=== PATIENT | female | born 1985 | race Caucasian/White ===

== ENCOUNTER 2017-01-14 13:09 | Inpatient (IN) | payer SELFPAY ==
[~2017-01-14] VITALS: Ht 157.5 cm; Wt 84.4 kg
[~2017-01-14 13:09] MED LIST: AMOXICILLIN500 M2 PO; AMOXICILLIN500 M3 PO; CYCLOBENZAPRINE5 M3 PO; DULCOLAX10 MG PO; IBU800 M1 PO; MACROBID100 M1 PO; MOTRIN800 MG PO; PEN-VK500 MG PO; PERCOCET 325 MG1 TA5 PO; PRENATAL1 TA3 PO; PRILOSEC20 MG PO; VICODIN 500 MG-1 TAB PO
[2017-01-14 13:14] VITALS: BP 132/76
[2017-01-14 14:11] LABS: BASO % 0.2 % (0.0-1.0); EOS # 0.2 10*3/uL (0.0-0.4); EOS % 0.9 % (1.0-4.0); HEMOGLOBIN 13.8 g/dl (12.0-16.0); LYMPH # 1.7 10*3/uL (1.3-4.4); LYMPH % 9.4 % (27.0-41.0); MEAN CELL VOLUME 88.2 fl (81.0-99.0); MEAN CORPUSCULAR HGB 29.7 pg (27.0-31.0); MEAN CORPUSCULAR HGB CONC 33.7 g/dl (33.0-37.0); MEAN PLATELET VOLUME 10.4 fl (9.6-12.3); MONO # 1.4 10*3/uL (0.1-1.0); MONO % 7.8 % (3.0-9.0); NEUT # 14.7 10*3/uL (2.3-7.9); NEUT % 81.1 % (47.0-73.0); PLATELET COUNT AUTOMATED 316 10*3/uL (130-400); RED BLOOD COUNT 4.65 10*6/uL (4.10-5.10); RED CELL DISTRI WIDTH 13.1 % (0-14.5); WHITE BLOOD COUNT 18.1 10*3/uL (4.8-10.8)
[2017-01-14 14:28] LABS: ALBUMIN 3.6 gm/dl (3.1-4.5); ALKALINE PHOSPHATASE 96 U/L (45-117); BUN 7 mg/dl (7-24); CHLORIDE 106 mmol/L (98-107); CREATININE 0.71 mg/dL (0.55-1.02); POTASSIUM 3.4 mmol/L (3.5-5.1); SGOT/AST 19 IU/L (3-35); SGPT/ALT 56 U/L (12-78); SODIUM 140 mmol/L (136-145); TOTAL PROTEIN 7.4 gm/dL (6.4-8.2)
[2017-01-14 15:36] VITALS: BP 120/55
[2017-01-14 16:15] VITALS: BP 131/60
[2017-01-14] MEDS ORDERED: JULEBER 28 DAY1 EACH PO (16:37)
[2017-01-14] MEDS ORDERED: PREDNISONE10 MG PO (16:38)
[2017-01-14] MEDS ORDERED: CELEXA20 MG PO (16:39)
[2017-01-14 20:00] VITALS: BP 106/50
[2017-01-15] VITALS: BP 107/55
[2017-01-15 06:11] LABS: BASO % 0.2 % (0.0-1.0); EOS # 0.3 10*3/uL (0.0-0.4); EOS % 2.1 % (1.0-4.0); LYMPH # 2.6 10*3/uL (1.3-4.4); LYMPH % 18.7 % (27.0-41.0); MEAN CELL VOLUME 90.4 fl (81.0-99.0); MEAN CORPUSCULAR HGB 29.6 pg (27.0-31.0); MEAN CORPUSCULAR HGB CONC 32.8 g/dl (33.0-37.0); MEAN PLATELET VOLUME 10.6 fl (9.6-12.3); MONO # 1.1 10*3/uL (0.1-1.0); MONO % 8.3 % (3.0-9.0); NEUT # 9.6 10*3/uL (2.3-7.9); NEUT % 70.2 % (47.0-73.0); PLATELET COUNT AUTOMATED 268 10*3/uL (130-400); RED BLOOD COUNT 3.85 10*6/uL (4.10-5.10); RED CELL DISTRI WIDTH 13.2 % (0-14.5); WHITE BLOOD COUNT 13.6 10*3/uL (4.8-10.8)
[2017-01-15 06:17] LABS: BUN 7 mg/dl (7-24); CHLORIDE 111 mmol/L (98-107); CHOLESTEROL 115 mg/dL (<200); CREATININE 0.69 mg/dL (0.55-1.02); HDL CHOLESTEROL 48 mg/dl (40-60); LDL CHOLESTEROL 45 mg/dL (9-159); MAGNESIUM 2.2 mg/dL (1.5-2.1); PHOSPHOROUS 2.7 mg/dL (2.5-4.9); POTASSIUM 3.7 mmol/L (3.5-5.1); SODIUM 141 mmol/L (136-145); TRIGLYCERIDES 111 mg/dl (<150); VLDL CHOLESTEROL 22 mg/dL (6-40)
[2017-01-15 06:18] LABS: HEMATOCRIT 34.8 % (37.0-47.0); HEMOGLOBIN 11.4 g/dl (12.0-16.0)
[2017-01-15 06:28] LABS: ACT PARTIAL THROMBO TIME 26.3 SECONDS (20.8-31.5)
[2017-01-15 08:00] VITALS: BP 114/50
[2017-01-15 12:00] VITALS: BP 121/58
[2017-01-15 16:00] VITALS: BP 120/69
[2017-01-15 20:00] VITALS: BP 121/70
[2017-01-16] VITALS: BP 124/69
[2017-01-16 05:49] LABS: BASO % 0.2 % (0.0-1.0); EOS # 0.3 10*3/uL (0.0-0.4); EOS % 3.2 % (1.0-4.0); HEMATOCRIT 34.8 % (37.0-47.0); HEMOGLOBIN 11.5 g/dl (12.0-16.0); LYMPH # 2.7 10*3/uL (1.3-4.4); LYMPH % 25.5 % (27.0-41.0); MEAN CELL VOLUME 90.9 fl (81.0-99.0); MEAN PLATELET VOLUME 10.5 fl (9.6-12.3); MONO # 0.9 10*3/uL (0.1-1.0); MONO % 8.4 % (3.0-9.0); NEUT # 6.5 10*3/uL (2.3-7.9); NEUT % 62.2 % (47.0-73.0); PLATELET COUNT AUTOMATED 278 10*3/uL (130-400); RED BLOOD COUNT 3.83 10*6/uL (4.10-5.10); WHITE BLOOD COUNT 10.5 10*3/uL (4.8-10.8)
[2017-01-16 06:20] LABS: ALBUMIN 2.7 gm/dl (3.1-4.5); ALKALINE PHOSPHATASE 87 U/L (45-117); BUN 5 mg/dl (7-24); CHLORIDE 110 mmol/L (98-107); POTASSIUM 3.6 mmol/L (3.5-5.1); SGOT/AST 38 IU/L (3-35); SGPT/ALT 70 U/L (12-78); SODIUM 140 mmol/L (136-145); TOTAL PROTEIN 6.3 gm/dL (6.4-8.2)
[2017-01-16 08:00] VITALS: BP 104/52
[2017-01-16 12:00] VITALS: BP 128/63
[2017-01-16 16:00] VITALS: BP 100/58
[2017-01-16 20:00] VITALS: BP 111/47
[2017-01-17] VITALS: BP 113/54
[2017-01-17 06:47] LABS: BASO % 0.5 % (0.0-1.0); EOS # 0.4 10*3/uL (0.0-0.4); EOS % 5.1 % (1.0-4.0); HEMATOCRIT 36.3 % (37.0-47.0); LYMPH # 2.5 10*3/uL (1.3-4.4); LYMPH % 31.2 % (27.0-41.0); MEAN CELL VOLUME 89.6 fl (81.0-99.0); MEAN CORPUSCULAR HGB 29.6 pg (27.0-31.0); MEAN CORPUSCULAR HGB CONC 33.1 g/dl (33.0-37.0); MEAN PLATELET VOLUME 10.4 fl (9.6-12.3); MONO # 0.6 10*3/uL (0.1-1.0); MONO % 7.7 % (3.0-9.0); NEUT # 4.3 10*3/uL (2.3-7.9); NEUT % 54.7 % (47.0-73.0); PLATELET COUNT AUTOMATED 311 10*3/uL (130-400); RED BLOOD COUNT 4.05 10*6/uL (4.10-5.10); RED CELL DISTRI WIDTH 12.6 % (0-14.5); WHITE BLOOD COUNT 7.9 10*3/uL (4.8-10.8)
[2017-01-17 07:18] LABS: BUN 6 mg/dl (7-24); CHLORIDE 107 mmol/L (98-107); CREATININE 0.63 mg/dL (0.55-1.02); POTASSIUM 3.9 mmol/L (3.5-5.1); SODIUM 141 mmol/L (136-145)
[2017-01-17 08:00] VITALS: BP 116/50
[2017-01-17] MEDS ORDERED: NORCO 5-325 TA1 EACH PO (12:44)
[2017-01-17] MEDS ORDERED: BACTRIM 400-801 EACH PO (12:44)
== END 2017-01-17 13:15 | disposition home or self-care (01) | DRG 872 ==
LOC: ED 13:09 → 5E 15:09 → EDHOLD 15:09 → 5E 15:33
PROVIDERS: Internal Medicine; Internal Medicine Hospice and Palliative Medicine; Nurse Practitioner; Registered Nurse; ADMIT Emergency Medicine
DX: A41.9 Sepsis, unspecified organism (principal); F32.9 Major depressive disorder, single episode, unspecified; L03.317 Cellulitis of buttock; L02.31 Cutaneous abscess of buttock; E87.6 Hypokalemia; R73.9 Hyperglycemia, unspecified; F17.210 Nicotine dependence, cigarettes, uncomplicated; F41.1 Generalized anxiety disorder; Z71.6 Tobacco abuse counseling

== ENCOUNTER → 2017-08-11 | Outpatient (CLI) | payer BC ==
[~2017-08-11] MED LIST changes: +BACTRIM 400-801 EACH PO; +CELEXA20 MG PO; +JULEBER 28 DAY1 EACH PO; +NORCO 5-325 TA1 EACH PO; +PREDNISONE10 MG PO
[2017-08-11 13:50] LABS: BASO % 0.5 % (0.0-1.0); EOS # 0.2 10*3/uL (0.0-0.4); HEMATOCRIT 41.1 % (37.0-47.0); HEMOGLOBIN 13.4 g/dl (12.0-16.0); LYMPH # 2.3 10*3/uL (1.3-4.4); LYMPH % 30.1 % (27.0-41.0); MEAN CELL VOLUME 85.6 fl (81.0-99.0); MEAN CORPUSCULAR HGB 27.9 pg (27.0-31.0); MEAN CORPUSCULAR HGB CONC 32.6 g/dl (33.0-37.0); MONO # 0.7 10*3/uL (0.1-1.0); MONO % 8.9 % (3.0-9.0); NEUT # 4.4 10*3/uL (2.3-7.9); NEUT % 57.1 % (47.0-73.0); PLATELET COUNT AUTOMATED 309 10*3/uL (130-400); RED CELL DISTRI WIDTH 12.9 % (0-14.5); WHITE BLOOD COUNT 7.7 10*3/uL (4.8-10.8)
[2017-08-11 14:01] LABS: BUN 11 mg/dl (7-24); CHLORIDE 105 mmol/L (98-107); CREATININE 0.66 mg/dL (0.55-1.02); POTASSIUM 3.8 mmol/L (3.5-5.1); SODIUM 140 mmol/L (136-145)
== END | disposition home or self-care (01) ==
LOC: ORTHO 02:21 → LAB 02:21 → ORTHO 19:21
PROVIDERS: Orthopaedic Surgery
DX: G56.02 Carpal tunnel syndrome, left upper limb (principal); M25.531 Pain in right wrist

== ENCOUNTER → 2017-08-17 | Day surgery (SDC) | payer BC ==
[~2017-08-17] VITALS: Ht 157.4 cm; Wt 86.2 kg
[~2017-08-17] MED LIST changes: +ZOFRAN4 MG PO
[2017-08-17 06:35] VITALS: BP 115/61
[2017-08-17 08:08] VITALS: BP 117/67
[2017-08-17 08:25] VITALS: BP 109/55
[2017-08-17 08:40] VITALS: BP 114/64
[2017-08-17 08:51] VITALS: BP 102/62
[2017-08-17 09:18] VITALS: BP 124/73
== END | disposition home or self-care (01) ==
LOC: SDC 08-11 12:30
DX: G56.02 Carpal tunnel syndrome, left upper limb (principal); F41.8 Other specified anxiety disorders; Z98.890 Other specified postprocedural states; Z87.891 Personal history of nicotine dependence

== ENCOUNTER → 2017-09-23 | Outpatient (CLI) | payer BC ==
[~2017-09-23] MED LIST changes: +ADIPEX-P37.5 MG PO
--- NOTE | ~2017-09-23 | EKG ---
[place], [place] ELECTROCARDIOGRAM REPORT NAME: RASHAD TOLENTINO UNIT #: [id number] ROOM: DOCTOR: CARLOS AGUILAR MD BIRTHDATE: [birth year] DOS: 09/23/2017 TIME: 0952 hours IMPRESSION: 1. Normal sinus rhythm at 61 beats per minute. 2. The tracing is normal. 3. No previous tracing is available for comparison. CARLOS AGUILAR MD CM:EKGRPT:ELECTROCARDIOGRAM REPORT [id number] CARLOS AGUILAR MD
[2017-09-23 10:01] LABS: BASO % 0.5 % (0.0-1.0); EOS # 0.2 10*3/uL (0.0-0.4); EOS % 2.9 % (1.0-4.0); HEMATOCRIT 39.9 % (37.0-47.0); HEMOGLOBIN 12.7 g/dl (12.0-16.0); LYMPH # 1.7 10*3/uL (1.3-4.4); LYMPH % 28.1 % (27.0-41.0); MEAN CELL VOLUME 86.7 fl (81.0-99.0); MEAN CORPUSCULAR HGB 27.6 pg (27.0-31.0); MEAN CORPUSCULAR HGB CONC 31.8 g/dl (33.0-37.0); MEAN PLATELET VOLUME 10.8 fl (9.6-12.3); MONO # 0.5 10*3/uL (0.1-1.0); MONO % 8.8 % (3.0-9.0); NEUT # 3.7 10*3/uL (2.3-7.9); NEUT % 59.5 % (47.0-73.0); PLATELET COUNT AUTOMATED 269 10*3/uL (130-400); WHITE BLOOD COUNT 6.2 10*3/uL (4.8-10.8)
[2017-09-23 10:32] LABS: BUN 10 mg/dl (7-24); CHLORIDE 107 mmol/L (98-107); CREATININE 0.78 mg/dL (0.55-1.02); SODIUM 138 mmol/L (136-145)
== END ==
LOC: LAB 08:44
PROVIDERS: Orthopaedic Surgery
DX: Z01.818 Encounter for other preprocedural examination (principal); G56.01 Carpal tunnel syndrome, right upper limb; Z87.891 Personal history of nicotine dependence

== ENCOUNTER → 2017-09-30 | Day surgery (SDC) | payer BC ==
[~2017-09-30] VITALS: Ht 157.4 cm; Wt 86.2 kg
[2017-09-30 07:30] VITALS: BP 116/53
[2017-09-30 09:47] VITALS: BP 131/63
[2017-09-30 10:00] VITALS: BP 107/59
[2017-09-30 10:15] VITALS: BP 109/63
[2017-09-30 10:29] VITALS: BP 111/57
[2017-09-30 10:36] VITALS: BP 104/48
== END | disposition home or self-care (01) ==
LOC: SDC 09-23 08:45
DX: G56.01 Carpal tunnel syndrome, right upper limb (principal); Z86.14 Personal history of Methicillin resistant Staphylococcus aureus infection; F41.9 Anxiety disorder, unspecified

== ENCOUNTER 2018-10-25 21:04 | Emergency (ER) | payer BC ==
[~2018-10-25] VITALS: Wt 88.5 kg
[2018-10-25] MEDS ORDERED: LEVAQUIN750 M1 PO (22:34)
== END 2018-10-25 23:32 | disposition home or self-care (01) ==
LOC: ED 21:04
DX: J18.1 Lobar pneumonia, unspecified organism (principal); F17.200 Nicotine dependence, unspecified, uncomplicated; Z79.899 Other long term (current) drug therapy

== ENCOUNTER 2020-08-11 14:55 | Emergency (ER) | payer BC ==
[~2020-08-11] VITALS: Ht 157.4 cm; Wt 90.7 kg
[~2020-08-11 14:55] MED LIST changes: +LEVAQUIN750 M1 PO
== END 2020-08-11 17:32 | disposition home or self-care (01) ==
LOC: ED 14:55
DX: M79.671 Pain in right foot (principal); M25.571 Pain in right ankle and joints of right foot; Z98.890 Other specified postprocedural states; Z79.899 Other long term (current) drug therapy

== ENCOUNTER → 2021-09-12 | Outpatient (CLI) | payer SELFPAY ==
[~2021-09-12] MED LIST changes: +NO HOME MEDICATION
== END | disposition home or self-care (01) ==
LOC: US 09:31
PROVIDERS: ATTEND Physician Assistant
DX: R22.2 Localized swelling, mass and lump, trunk (principal)